=== PATIENT | male | born 1990 | race Caucasian/White ===

== ENCOUNTER 2024-03-07 17:09 | Emergency (ER) | payer SELFPAY | END 2024-03-07 17:58 | disposition home or self-care (01) | LOC: CSHERS 17:09 | DX: K29.70 Gastritis, unspecified, without bleeding (principal) | CPT/HCPCS: 99283 ==

== ENCOUNTER 2024-03-16 09:44 | Emergency (ER) | payer SELFPAY ==
[2024-03-16] MEDS ORDERED: HYDROcodone/Acetaminophen 5/325 mg Tablet ONE (10:43)
[2024-03-16] MEDS ORDERED: Lorazepam 2 MG/ML VIAL ONE (10:44)
[2024-03-16] MEDS ORDERED: Ketorolac Tromethamine 30 MG (1 mL) VIAL ONE (10:44)
[2024-03-16] MEDS ORDERED: Ondansetron ODT 4 MG TAB ONE (10:44)
== END 2024-03-16 11:47 | disposition home or self-care (01) ==
LOC: CSHERS 09:44
DX: M54.50 Low back pain, unspecified (principal); X50.0XXA Overexertion from strenuous movement or load, initial encounter
CPT/HCPCS: 96372; 99282; J1885; J2060; Q0162

== ENCOUNTER 2024-03-19 01:09 | Emergency (ER) | payer SELFPAY ==
[2024-03-19] MEDS ORDERED: Ketorolac Tromethamine 30 MG (1 mL) VIAL ONE (01:44)
== END 2024-03-19 02:00 | disposition home or self-care (01) ==
LOC: CSHERS 01:09
DX: M54.42 Lumbago with sciatica, left side (principal)
CPT/HCPCS: 96372; 99283; J1885